=== PATIENT | female | born 1945 | race Caucasian/White ===

== ENCOUNTER 2020-08-16 15:45 | Outpatient (CLI) | payer MEDICARE ==
[2020-08-16 16:15] LABS: TOTAL HEMOGLOBIN 16.6 G/dl (12.0-16.0)
== END 2020-08-16 23:59 | disposition home or self-care (01) ==
LOC: RT 15:45
PROVIDERS: ATTEND Internal Medicine Pulmonary Disease
DX: J45.991 Cough variant asthma (principal)
CPT/HCPCS: 85018; 94010; 94727; 94729